=== PATIENT | male | born 1950 | race African-American/Black ===

== ENCOUNTER 2016-06-14 13:55 | Inpatient (IN) ==
--- NOTE | 2016-06-18 15:50 | Internal Med History&Physical ---
Date of Encounter: 06/18/16 Time of Encounter: 15:47 Assessment and Plan (1) History of atrial fibrillation Current visit: No Status: Chronic Currently rate seems controlled (2) History of coronary artery disease Current visit: No Status: Chronic Noted (3) Diabetes mellitus Current visit: No Status: Chronic Qualifiers: Diabetes mellitus type: type 2 Diabetes mellitus complication status: with neurologic complications Diabetes mellitus complication detail: with polyneuropathy Diabetes mellitus intermodal customer service insulin use: without care home use Qualified Code(s): E11.42 - Type 2 diabetes mellitus with diabetic polyneuropathy (4) Acute encephalopathy Current visit: No Status: Acute (5) Healthcare-associated pneumonia Current visit: No Status: Acute Follow cause of encephalopathy and respiratory failure (6) Necrosis of toe Current visit: No Status: Acute Seen by the cemetery laborer. Internal Medicine - H&P: HPI Admitted From: Hospital to Hospital Transfer Plans for Post Hospital Care: Home History of present illness: Mr. Philip is a 65 year old male Past Med Surg Social Fam HX - Past Medical History Medical history: atrial fibrillation, CVA, diabetes, GERD, hypertension Psychiatric history: no psych history - Past Surgical History Surgical History: non-contributory - Social History Smoking Status: Never smoker Smokeless Tobacco Status: No Alcohol use: none Drug use: none - Family History Father Family Member Ethnicity: Non- Living Status: Internal Medicine - H&P: Meds Aspirin Enteric Coated [Aspirin EC] 81 mg PO DAILY 02/02/15 [History] Atorvastatin Calcium [Lipitor] 80 mg PO HS 02/02/15 [History] Buspirone HCl [Buspar] 10 mg PO BID 02/02/15 [History] Carvedilol [Coreg] 25 mg PO BID 02/02/15 [History] Furosemide [Lasix] 40 mg PO BID 02/02/15 [History] Omeprazole [PriLOSEC] 20 mg PO DAILY 02/02/15 [History] TraZODone 50 mg PO HS 02/02/15 [History] Alprazolam [Xanax 0.25 MG Tablet] 0.25 mg PO QID PRN 07/24/15 [History] Docusate [Colace] 100 mg PO DAILY PRN 05/22/16 [History] Escitalopram [Lexapro] 20 mg PO DAILY 05/22/16 [History] Gabapentin [Neurontin] 900 mg PO TID 05/22/16 [History] Lisinopril [Zestril] 40 mg PO BID 05/22/16 [History] Spironolactone [Aldactone] 100 mg PO DAILY 05/22/16 [History] Tizanidine HCl 4 mg PO Q8H PRN 05/22/16 [History] Megestrol Acetate [Megace] 400 mg PO DAILY #30 udc 06/18/16 [Rx] Warfarin [Coumadin] 3 mg PO 1800 #20 tablet 06/18/16 [Rx] Allergies benzethonium chloride [From Lanacane Enloe] Allergy (Intermediate, Verified 11:57) Rash benzocaine [From Lanacane Enloe] Allergy (Intermediate, Verified 03/24/16 11:57) Rash All Systems PM: A 10-system review of systems was performed and is negative for pertinent findings except as documented above in the HPI. - Constitutional Vitals: Temp Pulse Resp BP Pulse Ox 98.2 F 87 18 136/69 97 06/18/16 14:31 06/18/16 14:31 06/18/16 14:31 06/18/16 14:31 06/18/16 14:31 - Head Head exam: Present: atraumatic, normal inspection, normocephalic - Neck Neck exam general surgery: Present: supple, trachea midline. Absent: lymphadenopathy - Respiratory Respiratory exam: Present: CTAB. Absent: accessory muscle use, rales, rhonchi, wheezes - Cardiovascular Cardiovascular exam: Present: RRR, +S1, +S2. Absent: diastolic murmur, gallop, rubs, systolic murmur - GI/Abdominal GI/Abdominal exam: Present: normal bowel sounds, soft, no peritoneal signs. Absent: distended, tenderness Internal Med - H&P Results - Labs Labs: Pending
[2016-06-18] MEDS ORDERED: Warfarin perPT PO PRN (20:32)
[2016-06-18] MEDS: Gabapentin 300 MG CAPSULE PO SCH (20:41)
[2016-06-18] MEDS: Lisinopril 20 MG TABLET PO SCH (20:42)
[2016-06-18] MEDS: Furosemide 40 MG TABLET PO SCH (20:58)
[2016-06-19 05:38] LABS: Basophils % 0.2 %; Eosinophils # 0.3 K/mcL (0.0-0.6); Eosinophils % 2.9 %; Hematocrit 29.8 % (37.5-50.1); Hemoglobin 10.2 g/dL (12.9-16.9); Immature Granulocytes % 0.3 % (0-4); Lymphocytes # 1.2 K/mcL (0.6-4.6); Lymphocytes % 13.9 %; Mean Corpuscular HGB Conc 34.2 g/dL (31.6-35.5); Mean Corpuscular Hemoglobin 29.4 pg (28.0-33.3); Mean Corpuscular Volume 85.9 fL (83.0-100.0); Mean Platelet Volume 10.7 fL (9.4-12.4); Monocytes # 0.9 K/mcL (0.0-1.3); Monocytes % 9.8 %; Neutrophils # 6.5 K/mcL (1.6-8.9); Platelet Count 156 K/mcL (140-400); Red Blood Count 3.47 M/mcL (4.19-5.50); Red Cell Distribution Width 16.1 % (11.5-14.5); Segmented Neutrophils % 72.9 %
[2016-06-19 05:47] LABS: INR 3.9
[2016-06-19 05:50] LABS: BUN/Creatinine Ratio 14 (6-26); Blood Urea Nitrogen 13 mg/dL (8-26); Carbon Dioxide 20 mEq/L (19-29); Chloride 117 mEq/L (98-109); Glucose 106 mg/dL (70-99); Osmolality,Calculated 305 (280-300); Potassium 2.9 mEq/L (3.5-4.5); Sodium 147 mEq/L (136-145); eGFR For African Americans > 60 (> 60); eGFR For Non-African Americans > 60 (> 60)
[2016-06-19 05:51] LABS: Prothrombin Time 43.5 Seconds (9.4-12.1)
[2016-06-19] MEDS ORDERED: *HR* Heparin 5,000 UNIT/ML VIAL SQ SCH (09:00)
[2016-06-19] MEDS: Lisinopril 20 MG TABLET PO SCH ×2 (09:33→22:45)
[2016-06-19] MEDS: Gabapentin 300 MG CAPSULE PO SCH ×3 (09:33→22:45)
[2016-06-19] MEDS: Megestrol Acetate 400 MG/10 ML UDC PO SCH (09:33)
[2016-06-19] MEDS: Aspirin Enteric Coated 81 MG Tablet PO SCH (09:34)
[2016-06-19] MEDS: Furosemide 40 MG TABLET PO SCH ×2 (09:34→19:53)
--- NOTE | 2016-06-19 15:14 | Internal Med Progress Note ---
Date of Encounter: 06/19/16 Time of Encounter: 15:12 - Assessment and plan (1) History of atrial fibrillation Current Visit: No Status: Chronic Assessment and plan: Right now no evidence of uncontrolled heart rate (2) History of coronary artery disease Current Visit: No Status: Chronic (3) Diabetes mellitus Current Visit: No Status: Chronic Qualifiers: Diabetes mellitus type: type 2 Diabetes mellitus complication status: with neurologic complications Diabetes mellitus complication detail: with polyneuropathy Diabetes mellitus bed bug exterminator insulin use: without bed bug exterminator use Qualified Code(s): E11.42 - Type 2 diabetes mellitus with diabetic polyneuropathy (4) Acute encephalopathy Current Visit: No Status: Acute Assessment and plan: Well not sure if this resolved or not. Patient is not completely responsive (5) Healthcare-associated pneumonia Current Visit: No Status: Acute Assessment and plan: We will follow-up chest x-ray (6) Necrosis of toe Current Visit: No Status: Acute - Time Spent With Patient less than 15 minutes - Subjective Interval history: This patient did very poorly today he is barely able to do anything with her therapist. If this continues by Thursday he will be a fci candidate - Constitutional Vitals: Temp Pulse Resp BP Pulse Ox 97.4 F L 91 20 103/70 93 06/19/16 11:19 06/19/16 11:19 06/19/16 11:19 06/19/16 11:19 06/19/16 11:19 - Head Head exam: Present: atraumatic, normal inspection, normocephalic - Neck Neck exam general surgery: Present: supple, trachea midline. Absent: lymphadenopathy - Respiratory Respiratory exam: Present: CTAB. Absent: accessory muscle use, rales, rhonchi, wheezes - Cardiovascular Cardiovascular exam: Present: RRR, +S1, +S2. Absent: diastolic murmur, gallop, rubs, systolic murmur - GI/Abdominal GI/Abdominal exam: Present: normal bowel sounds, soft, no peritoneal signs. Absent: distended, tenderness - Expanded Lower Extremities Exam Foot/Toe exam: Present: deformity (Or the patient has a [facility] left lateral heel eschar.) Neuro vascular tendon exam: Present: abnormal 2-point discrimination Internal Medicine: Result - Labs CBC & Chem 7: 06/19/16 05:05 06/19/16 05:05 Labs: Short CBC 06/19/16 Range/Units 05:05 WBC 8.9 (4.3-11.1) K/mcL Hgb 10.2 L D (12.9-16.9) g/dL Hct 29.8 L (37.5-50.1) % Plt Count 156 (140-400) K/mcL Neutrophils # 6.5 (1.6-8.9) K/mcL BMP 06/19/16 05:05 Sodium 147 H Potassium 2.9 L Chloride 117 H Carbon Dioxide 20 BUN 13 Creatinine 0.94 Glucose 106 H Calcium 8.0 L Potassium was low sodium is a little elevated and I may have to correct this with fluids. - ABG Interpretation ABG results: PT/INR, D-dimer PT 43.5 Seconds (9.4-12.1) H* 06/19/16 05:05 Consult Discharge Plan - Plan Referrals: Yaz Key DO [Primary Care Provider] -
[2016-06-19] MEDS ORDERED: *HR* Warfarin 3 MG TABLET PO SCH ×2 (18:00)
[2016-06-20 05:38] LABS: INR 3.3
[2016-06-20 05:49] LABS: BUN/Creatinine Ratio 13 (6-26); Blood Urea Nitrogen 15 mg/dL (8-26); Calcium 7.9 mg/dL (8.6-10.8); Carbon Dioxide 22 mEq/L (19-29); Chloride 115 mEq/L (98-109); Glucose 113 mg/dL (70-99); Osmolality,Calculated 306 (280-300); Potassium 2.7 mEq/L (3.5-4.5); Sodium 147 mEq/L (136-145); eGFR For African Americans > 60 (> 60); eGFR For Non-African Americans > 60 (> 60)
[2016-06-20 06:04] LABS: Albumin/Globulin Ratio 0.4 (1.1-2.2); Globulin 4.2 g/dL (2.4-3.5)
[2016-06-20 08:43] LABS: Albumin 1.8 g/dL (3.5-5.0)
[2016-06-20] MEDS: Gabapentin 300 MG CAPSULE PO SCH ×3 (09:51→22:39)
[2016-06-20] MEDS: Megestrol Acetate 400 MG/10 ML UDC PO SCH (09:51)
[2016-06-20] MEDS: Lisinopril 20 MG TABLET PO SCH ×2 (09:51→22:40)
[2016-06-20] MEDS: Aspirin Enteric Coated 81 MG Tablet PO SCH (09:52)
[2016-06-20] MEDS: Furosemide 40 MG TABLET PO SCH ×2 (09:53→18:48)
[2016-06-21 05:11] LABS: INR 2.6; Prothrombin Time 28.4 Seconds (9.4-12.1)
[2016-06-21] MEDS: Gabapentin 300 MG CAPSULE PO SCH ×3 (08:53→20:57)
[2016-06-21] MEDS: Aspirin Enteric Coated 81 MG Tablet PO SCH (08:53)
[2016-06-21] MEDS: Lisinopril 20 MG TABLET PO SCH ×2 (08:54→20:56)
[2016-06-21] MEDS: Megestrol Acetate 400 MG/10 ML UDC PO SCH (08:54)
[2016-06-21] MEDS: Furosemide 40 MG TABLET PO SCH ×2 (08:54→16:26)
--- NOTE | 2016-06-21 09:35 | Internal Med Progress Note ---
Date of Encounter: 06/21/16 Time of Encounter: 09:31 - Assessment and plan (1) Acute CVA (cerebrovascular accident) Current Visit: Yes Status: Acute Assessment and plan: Medical conditioning secondary to left-sided flaccid. Potassium is low. Will supplement - Time Spent With Patient less than 15 minutes - Subjective Interval history: Still complains of generalized weakness. No shortness of breath no chest pain. Complains of the same left-sided weakness. Eating sitting up. Feeding himself. - Constitutional Vitals: Temp Pulse Resp BP Pulse Ox 98.5 F 87 18 132/77 95 06/21/16 06:53 06/21/16 06:53 06/21/16 06:53 06/21/16 06:53 06/21/16 06:53 General appearance: Present: cachectic, A&O X 3, pleasant, no acute distress - Respiratory Respiratory exam: Present: CTAB. Absent: accessory muscle use, rales, rhonchi, wheezes - Cardiovascular Cardiovascular exam: Present: RRR, +S1, +S2. Absent: diastolic murmur, gallop, rubs, systolic murmur - GI/Abdominal GI/Abdominal exam: Present: normal bowel sounds, soft, no peritoneal signs. Absent: distended, tenderness Internal Medicine: Result - Labs CBC & Chem 7: 06/19/16 05:05 06/20/16 05:00 - ABG Interpretation ABG results: PT/INR, D-dimer PT 28.4 Seconds (9.4-12.1) H 06/21/16 05:00 Consult Discharge Plan - Plan Referrals: Yaz Key DO [Primary Care Provider] -
[2016-06-21] MEDS ORDERED: *HR* Warfarin 1 MG TABLET PO ONE (18:00)
[2016-06-22 05:01] LABS: INR 2.4; Prothrombin Time 26.9 Seconds (9.4-12.1)
[2016-06-22 05:11] LABS: BUN/Creatinine Ratio 10 (6-26); Blood Urea Nitrogen 10 mg/dL (8-26); Calcium 7.6 mg/dL (8.6-10.8); Carbon Dioxide 22 mEq/L (19-29); Chloride 108 mEq/L (98-109); Glucose 149 mg/dL (70-99); Osmolality,Calculated 290 (280-300); Potassium 3.2 mEq/L (3.5-4.5); Sodium 139 mEq/L (136-145); eGFR For African Americans > 60 (> 60); eGFR For Non-African Americans > 60 (> 60)
[2016-06-22] MEDS: Furosemide 40 MG TABLET PO SCH ×2 (08:37→16:29)
[2016-06-22] MEDS: Gabapentin 300 MG CAPSULE PO SCH ×3 (08:45→21:39)
[2016-06-22] MEDS: Megestrol Acetate 400 MG/10 ML UDC PO SCH (08:45)
[2016-06-22] MEDS: Lisinopril 20 MG TABLET PO SCH ×2 (08:45→21:42)
[2016-06-22] MEDS: Aspirin Enteric Coated 81 MG Tablet PO SCH (08:46)
--- NOTE | 2016-06-22 11:00 | Internal Med Progress Note ---
Date of Encounter: 06/22/16 Time of Encounter: 10:57 - Assessment and plan (1) History of atrial fibrillation Current Visit: No Status: Chronic Assessment and plan: Regular rate seems to be controlled (2) History of coronary artery disease Current Visit: No Status: Chronic Assessment and plan: Noted (3) Diabetes mellitus Current Visit: No Status: Chronic Assessment and plan: Followed blood sugars Qualifiers: Diabetes mellitus type: type 2 Diabetes mellitus complication status: with neurologic complications Diabetes mellitus complication detail: with polyneuropathy Diabetes mellitus termite renewal inspector insulin use: without termite renewal inspector use Qualified Code(s): E11.42 - Type 2 diabetes mellitus with diabetic polyneuropathy (4) Acute encephalopathy Current Visit: No Status: Acute Assessment and plan: I think were possibly back to baseline (5) Healthcare-associated pneumonia Current Visit: No Status: Acute Assessment and plan: Check chest x-ray (6) Necrosis of toe Current Visit: No Status: Acute Assessment and plan: Followed by wound care - Time Spent With Patient less than 15 minutes - Subjective Interval history: I actually think the patient responds better today than previously. He is dressed and not up in the wheelchair - Constitutional Vitals: Temp Pulse Resp BP Pulse Ox 98.0 F 72 18 125/62 96 06/22/16 06:56 06/22/16 06:56 06/22/16 06:56 06/22/16 06:56 06/22/16 06:56 General appearance: Present: cachectic, A&O X 3, pleasant, no acute distress - Head Head exam: Present: atraumatic, normal inspection, normocephalic - Neck Neck exam general surgery: Present: supple, trachea midline. Absent: lymphadenopathy - Respiratory Respiratory exam: Present: CTAB. Absent: accessory muscle use, rales, rhonchi, wheezes - Cardiovascular Cardiovascular exam: Present: RRR, +S1, +S2. Absent: diastolic murmur, gallop, rubs, systolic murmur Internal Medicine: Result - Labs CBC & Chem 7: 06/19/16 05:05 06/22/16 04:45 Labs: BMP 06/22/16 04:45 Sodium 139 D Potassium 3.2 L Chloride 108 Carbon Dioxide 22 BUN 10 Creatinine 1.00 Glucose 149 H Calcium 7.6 L Potassium low will follow this - ABG Interpretation ABG results: PT/INR, D-dimer PT 26.9 Seconds (9.4-12.1) H 06/22/16 04:45 Consult Discharge Plan - Plan Referrals: Yaz Key DO [Primary Care Provider] -
[2016-06-22] MEDS: CefTRIAXone 1,000 MG in D5% in Water (Mini-Bag+) 100 ML IVPB SCH (12:53)
[2016-06-22] MEDS: Azithromycin 500 MG in D5% in Water 250 ML IVPB SCH (13:43)
[2016-06-22] MEDS ORDERED: *HR* Warfarin 1 MG TABLET PO ONE (18:00)
[2016-06-23 06:15] LABS: Basophils # 0.1 K/mcL (0.0-0.2); Basophils % 0.7 %; Eosinophils # 0.3 K/mcL (0.0-0.6); Eosinophils % 3.7 %; Hematocrit 27.2 % (37.5-50.1); Hemoglobin 9.4 g/dL (12.9-16.9); Immature Granulocytes % 0.3 % (0-4); Lymphocytes # 1.5 K/mcL (0.6-4.6); Lymphocytes % 20.5 %; Mean Corpuscular HGB Conc 34.6 g/dL (31.6-35.5); Mean Corpuscular Hemoglobin 29.7 pg (28.0-33.3); Mean Corpuscular Volume 85.8 fL (83.0-100.0); Mean Platelet Volume 11.1 fL (9.4-12.4); Monocytes # 0.9 K/mcL (0.0-1.3); Neutrophils # 4.7 K/mcL (1.6-8.9); Platelet Count 133 K/mcL (140-400); Red Blood Count 3.17 M/mcL (4.19-5.50); Red Cell Distribution Width 15.8 % (11.5-14.5); Segmented Neutrophils % 62.8 %
[2016-06-23 06:18] LABS: BUN/Creatinine Ratio 10 (6-26); Blood Urea Nitrogen 9 mg/dL (8-26); Calcium 7.6 mg/dL (8.6-10.8); Carbon Dioxide 22 mEq/L (19-29); Chloride 110 mEq/L (98-109); Glucose 110 mg/dL (70-99); Osmolality,Calculated 289 (280-300); Potassium 3.4 mEq/L (3.5-4.5); Prothrombin Time 21.7 Seconds (9.4-12.1); Sodium 140 mEq/L (136-145); eGFR For African Americans > 60 (> 60); eGFR For Non-African Americans > 60 (> 60)
[2016-06-23] MEDS: CefTRIAXone 1,000 MG in D5% in Water (Mini-Bag+) 100 ML IVPB SCH (07:57)
[2016-06-23] MEDS: Megestrol Acetate 400 MG/10 ML UDC PO SCH (08:50)
[2016-06-23] MEDS: Gabapentin 300 MG CAPSULE PO SCH ×3 (08:50→19:55)
[2016-06-23] MEDS: Furosemide 40 MG TABLET PO SCH ×2 (08:51→15:59)
[2016-06-23] MEDS: Aspirin Enteric Coated 81 MG Tablet PO SCH (08:51)
[2016-06-23] MEDS: Lisinopril 20 MG TABLET PO SCH ×2 (08:51→19:55)
[2016-06-23] MEDS: Azithromycin 500 MG in D5% in Water 250 ML IVPB SCH (13:25)
--- NOTE | 2016-06-23 14:36 | Internal Med Progress Note ---
Date of Encounter: 06/23/16 Time of Encounter: 14:34 - Assessment and plan (1) History of atrial fibrillation Current Visit: No Status: Chronic Assessment and plan: No evidence of uncontrolled heart rate (2) History of coronary artery disease Current Visit: No Status: Chronic Assessment and plan: Noted (3) Diabetes mellitus Current Visit: No Status: Chronic Assessment and plan: Noted Qualifiers: Diabetes mellitus type: type 2 Diabetes mellitus complication status: with neurologic complications Diabetes mellitus complication detail: with polyneuropathy Diabetes mellitus terminal operator insulin use: without senior living use Qualified Code(s): E11.42 - Type 2 diabetes mellitus with diabetic polyneuropathy (4) Acute encephalopathy Current Visit: No Status: Acute Assessment and plan: History of resolved even if he is not appropriate at all time (5) Healthcare-associated pneumonia Current Visit: No Status: Acute Assessment and plan: As still appears to have infiltrate (6) Necrosis of toe Current Visit: No Status: Acute Assessment and plan: Noted - Time Spent With Patient less than 15 minutes - Subjective Interval history: I actually think the patient responds better today than previously. He is dressed and not up in the wheelchair. Chest x-ray continues to show bilateral opacities even related to actually call pneumonic process. Saw continue the antibiotics for the next 5 days - Constitutional Vitals: Temp Pulse Resp BP Pulse Ox 98.6 F 94 17 138/87 97 06/23/16 07:33 06/23/16 09:18 06/23/16 09:18 06/23/16 09:18 06/23/16 09:18 General appearance: Present: cachectic, A&O X 3, pleasant, no acute distress - Head Head exam: Present: atraumatic, normal inspection, normocephalic - Neck Neck exam general surgery: Present: supple, trachea midline. Absent: lymphadenopathy - Respiratory Respiratory exam: Present: CTAB. Absent: accessory muscle use, rales, rhonchi, wheezes - Cardiovascular Cardiovascular exam: Present: RRR, +S1, +S2. Absent: diastolic murmur, gallop, rubs, systolic murmur Internal Medicine: Result - Labs CBC & Chem 7: 06/23/16 05:10 06/23/16 05:10 Labs: Short CBC 06/23/16 Range/Units 05:10 WBC 7.5 (4.3-11.1) K/mcL Hgb 9.4 L (12.9-16.9) g/dL Hct 27.2 L (37.5-50.1) % Plt Count 133 L (140-400) K/mcL Neutrophils # 4.7 (1.6-8.9) K/mcL BMP 06/23/16 05:10 Sodium 140 Potassium 3.4 L Chloride 110 H Carbon Dioxide 22 BUN 9 Creatinine 0.86 Glucose 110 H Calcium 7.6 L Lab is stable - ABG Interpretation ABG results: PT/INR, D-dimer PT 21.7 Seconds (9.4-12.1) H 06/23/16 05:10 - Impressions Impressions Chest X-Ray 06/23/16 06:00 IMPRESSION: Stable bilateral patchy pulmonary opacities. D/ / Jonathan Guo MD / Jonathan Guo MD Interpreting Provider: Jonathan Guo MD Consult Discharge Plan - Plan Referrals: Yaz Key DO [Primary Care Provider] -
[2016-06-23] MEDS ORDERED: Dextrose Gel 15 GM PO PRN ×2 (17:02)
[2016-06-23] MEDS ORDERED: *HR* Dextrose 50 % in Water (Syg) 50 ML SYRINGE IVP PRN (17:02)
[2016-06-23] MEDS ORDERED: D5% in Water 1,000 ML IVC PRN (17:02)
[2016-06-23] MEDS ORDERED: *HR* Warfarin 1 MG TABLET PO ONE (18:00)
[2016-06-23] MEDS: Insulin LISPRO 300 UNITS/3 ML VIAL SQ SCH (22:22)
[2016-06-24 05:28] LABS: INR 1.8; Prothrombin Time 19.5 Seconds (9.4-12.1)
[2016-06-24] MEDS: Aspirin Enteric Coated 81 MG Tablet PO SCH (08:52)
[2016-06-24] MEDS: Megestrol Acetate 400 MG/10 ML UDC PO SCH (08:52)
[2016-06-24] MEDS: CefTRIAXone 1,000 MG in D5% in Water (Mini-Bag+) 100 ML IVPB SCH (08:52)
[2016-06-24] MEDS: Azithromycin 250 MG TABLET PO SCH (08:53)
[2016-06-24] MEDS: Lisinopril 20 MG TABLET PO SCH ×2 (08:53→21:05)
[2016-06-24] MEDS: Furosemide 40 MG TABLET PO SCH ×2 (08:54→17:26)
[2016-06-24] MEDS: Gabapentin 300 MG CAPSULE PO SCH ×3 (08:54→21:05)
[2016-06-24] MEDS: Insulin LISPRO 300 UNITS/3 ML VIAL SQ SCH ×4 (08:54→21:05)
--- NOTE | 2016-06-24 13:28 | Internal Med Progress Note ---
Date of Encounter: 06/24/16 Time of Encounter: 13:28 - Assessment and plan (1) History of atrial fibrillation Current Visit: No Status: Chronic Assessment and plan: No evidence of uncontrolled heart rate (2) History of coronary artery disease Current Visit: No Status: Chronic Assessment and plan: Noted (3) Diabetes mellitus Current Visit: No Status: Chronic Assessment and plan: Noted should be watched closely. Blood sugars pretty darn good Qualifiers: Diabetes mellitus type: type 2 Diabetes mellitus complication status: with neurologic complications Diabetes mellitus complication detail: with polyneuropathy Diabetes mellitus terminal gauger supervisor insulin use: without skilled nursing use Qualified Code(s): E11.42 - Type 2 diabetes mellitus with diabetic polyneuropathy (4) Acute encephalopathy Current Visit: No Status: Acute Assessment and plan: This seems to have resolved (5) Healthcare-associated pneumonia Current Visit: No Status: Acute (6) Necrosis of toe Current Visit: No Status: Acute Assessment and plan: I think in the next couple days and. Chest CT. Since this has not changed much I Dixon strictly a pneumonic process these 2 opacities - Time Spent With Patient less than 15 minutes - Subjective Interval history: I actually think the patient responds better today than previously. He is dressed and . Patient is is having normal conversations now. up in the wheelchair. Chest x-ray continues to show bilateral opacities even related to actually call pneumonic process. Saw continue the antibiotics for the next 5 days - Constitutional Vitals: Temp Pulse Resp BP Pulse Ox 98.6 F 85 16 113/73 96 06/24/16 06:00 06/24/16 06:00 06/24/16 06:00 06/24/16 06:00 06/24/16 06:00 General appearance: Present: cachectic, A&O X 3, pleasant, no acute distress - Head Head exam: Present: atraumatic, normocephalic - Neck Neck exam general surgery: Present: supple, trachea midline. Absent: lymphadenopathy - Respiratory Respiratory exam: Present: CTAB. Absent: accessory muscle use, rales, rhonchi, wheezes - Cardiovascular Cardiovascular exam: Present: RRR, +S1, +S2. Absent: diastolic murmur, gallop, rubs, systolic murmur Internal Medicine: Result - Labs CBC & Chem 7: 06/23/16 05:10 06/23/16 05:10 Labs: Watch the potassium - ABG Interpretation ABG results: PT/INR, D-dimer PT 19.5 Seconds (9.4-12.1) H 06/24/16 05:10 Consult Discharge Plan - Plan Referrals: Yaz Key DO [Primary Care Provider] -
[2016-06-24] MEDS ORDERED: *HR* Warfarin 1 MG TABLET PO ONE (18:00)
[2016-06-25 05:24] LABS: INR 1.7; Prothrombin Time 18.9 Seconds (9.4-12.1)
[2016-06-25] MEDS: Insulin LISPRO 300 UNITS/3 ML VIAL SQ SCH ×4 (07:29→21:47)
[2016-06-25] MEDS: Megestrol Acetate 400 MG/10 ML UDC PO SCH (07:29)
[2016-06-25] MEDS: Aspirin Enteric Coated 81 MG Tablet PO SCH (07:36)
[2016-06-25] MEDS: Azithromycin 250 MG TABLET PO SCH (07:36)
[2016-06-25] MEDS: Furosemide 40 MG TABLET PO SCH ×2 (07:36→16:41)
[2016-06-25] MEDS: Lisinopril 20 MG TABLET PO SCH ×2 (07:37→21:45)
[2016-06-25] MEDS: Gabapentin 300 MG CAPSULE PO SCH ×3 (07:37→21:46)
[2016-06-25] MEDS: CefTRIAXone 1,000 MG in D5% in Water (Mini-Bag+) 100 ML IVPB SCH (09:50)
[2016-06-25] MEDS: Acetaminophen 325 MG TABLET PO PRN (09:59)
--- NOTE | 2016-06-25 14:29 | Internal Med Progress Note ---
Date of Encounter: 06/25/16 Time of Encounter: 14:00 - Assessment and plan (1) History of atrial fibrillation Current Visit: No Status: Chronic (2) History of coronary artery disease Current Visit: No Status: Chronic (3) Diabetes mellitus Current Visit: No Status: Chronic Qualifiers: Diabetes mellitus type: type 2 Diabetes mellitus complication status: with neurologic complications Diabetes mellitus complication detail: with polyneuropathy Diabetes mellitus exterminator helper insulin use: without exterminator helper use Qualified Code(s): E11.42 - Type 2 diabetes mellitus with diabetic polyneuropathy (4) Acute encephalopathy Current Visit: No Status: Acute (5) Healthcare-associated pneumonia Current Visit: No Status: Acute (6) Necrosis of toe Current Visit: No Status: Acute - Subjective Interval history: I actually think the patient responds better today than previously. He is dressed and . Patient is is having normal conversations now. up in the wheelchair. Chest x-ray continues to show bilateral opacities even related to actually call pneumonic process. Saw continue the antibiotics for the next 5 days - Constitutional Vitals: Temp Pulse Resp BP Pulse Ox 97.8 F 94 18 100/60 96 06/25/16 07:08 06/25/16 07:08 06/25/16 07:08 06/25/16 13:03 06/25/16 07:08 General appearance: Present: cachectic, A&O X 3, pleasant, no acute distress Internal Medicine: Result - Labs CBC & Chem 7: 06/23/16 05:10 06/25/16 05:00 Labs: BMP 06/25/16 05:00 Potassium 3.4 L - ABG Interpretation ABG results: PT/INR, D-dimer PT 18.9 Seconds (9.4-12.1) H 06/25/16 05:00 - Impressions Impressions Chest CT 06/24/16 13:33 IMPRESSION: 1. Improved aeration in the lower lobes. Superimposed opacities some of which demonstrate nodular morphology. While these findings may reflect infectious or inflammatory process, the nodular morphology raises concerns for possible underlying neoplastic process. Recommend follow-up to resolution. 2. Small pericardial effusion, stable since prior study. 3. Cardiomegaly. D/ / 06/24/2016 18:37:35 Tavares Echevarria MD / indira Interpreting Provider: Tavares Echevarria MD Consult Discharge Plan - Plan Referrals: Yaz Key DO [Primary Care Provider] -
[2016-06-25] MEDS ORDERED: *HR* Warfarin 2 MG TABLET PO ONE (18:00)
[2016-06-26 05:16] LABS: INR 1.9; Prothrombin Time 20.7 Seconds (9.4-12.1)
[2016-06-26] MEDS: Insulin LISPRO 300 UNITS/3 ML VIAL SQ SCH ×4 (08:12→21:27)
[2016-06-26] MEDS: Gabapentin 300 MG CAPSULE PO SCH ×3 (09:09→21:28)
[2016-06-26] MEDS: Azithromycin 250 MG TABLET PO SCH (09:10)
[2016-06-26] MEDS: Aspirin Enteric Coated 81 MG Tablet PO SCH (09:10)
[2016-06-26] MEDS: Furosemide 40 MG TABLET PO SCH ×2 (09:10→17:49)
[2016-06-26] MEDS: Lisinopril 20 MG TABLET PO SCH ×2 (09:10→21:28)
[2016-06-26] MEDS: Megestrol Acetate 400 MG/10 ML UDC PO SCH (09:11)
[2016-06-26] MEDS: CefTRIAXone 1,000 MG in D5% in Water (Mini-Bag+) 100 ML IVPB SCH (09:11)
--- NOTE | 2016-06-26 10:41 | Internal Med Progress Note ---
Date of Encounter: 06/26/16 Time of Encounter: 10:39 - Assessment and plan (1) History of atrial fibrillation Current Visit: No Status: Chronic Assessment and plan: No evidence of uncontrolled heart rate at this time (2) History of coronary artery disease Current Visit: No Status: Chronic Assessment and plan: Noted (3) Diabetes mellitus Current Visit: No Status: Chronic Assessment and plan: Following blood sugars. They are labile. He is getting sliding scale coverage as well as basic basal meds Qualifiers: Diabetes mellitus type: type 2 Diabetes mellitus complication status: with neurologic complications Diabetes mellitus complication detail: with polyneuropathy Diabetes mellitus penitentiary insulin use: without terminal worker use Qualified Code(s): E11.42 - Type 2 diabetes mellitus with diabetic polyneuropathy (4) Acute encephalopathy Current Visit: No Status: Acute Assessment and plan: I think this resolved (5) Healthcare-associated pneumonia Current Visit: No Status: Acute Assessment and plan: Following chest x-rays (6) Necrosis of toe Current Visit: No Status: Acute Assessment and plan: Wound cares follow - Time Spent With Patient less than 15 minutes - Subjective Interval history: Patient overall is improved already. He states when he has a BM he does feel like he empties his rectum. The stool was soft with little Reglan increase peristalsis. - Constitutional Vitals: Temp Pulse Resp BP Pulse Ox 97.6 F 119 16 139/73 95 06/26/16 07:00 06/26/16 07:00 06/26/16 07:00 06/26/16 07:00 06/26/16 07:00 General appearance: Present: cachectic, A&O X 3, pleasant, no acute distress - Head Head exam: Present: atraumatic, normal inspection, normocephalic - Neck Neck exam general surgery: Present: supple, trachea midline. Absent: lymphadenopathy - Respiratory Respiratory exam: Present: CTAB. Absent: accessory muscle use, rales, rhonchi, wheezes - Cardiovascular Cardiovascular exam: Present: RRR, +S1, +S2. Absent: diastolic murmur, gallop, rubs, systolic murmur Internal Medicine: Result - Labs CBC & Chem 7: 06/23/16 05:10 06/26/16 05:02 Labs: BMP 06/26/16 05:02 Potassium 3.6 Lab is okay potassium was normal - ABG Interpretation ABG results: PT/INR, D-dimer PT 20.7 Seconds (9.4-12.1) H 06/26/16 05:02 Consult Discharge Plan - Plan Referrals: Yaz Key DO [Primary Care Provider] -
[2016-06-26] MEDS ORDERED: *HR* Warfarin 1 MG TABLET PO ONE (18:00)
[2016-06-27 05:48] LABS: Prothrombin Time 21.7 Seconds (9.4-12.1)
[2016-06-27] MEDS: Lisinopril 20 MG TABLET PO SCH ×2 (08:47→21:19)
[2016-06-27] MEDS: Aspirin Enteric Coated 81 MG Tablet PO SCH (08:48)
[2016-06-27] MEDS: Gabapentin 300 MG CAPSULE PO SCH ×3 (08:48→21:18)
[2016-06-27] MEDS: Azithromycin 250 MG TABLET PO SCH (08:48)
[2016-06-27] MEDS: Furosemide 40 MG TABLET PO SCH ×2 (08:48→16:15)
[2016-06-27] MEDS: CefTRIAXone 1,000 MG in D5% in Water (Mini-Bag+) 100 ML IVPB SCH (08:48)
[2016-06-27] MEDS: Insulin LISPRO 300 UNITS/3 ML VIAL SQ SCH ×4 (09:33→21:17)
[2016-06-27] MEDS: Megestrol Acetate 400 MG/10 ML UDC PO SCH (09:33)
[2016-06-27] MEDS: Acetaminophen 325 MG TABLET PO PRN (11:47)
--- NOTE | 2016-06-27 14:14 | Internal Med Progress Note ---
Date of Encounter: 06/27/16 Time of Encounter: 14:12 - Assessment and plan (1) History of atrial fibrillation Current Visit: No Status: Chronic Assessment and plan: No evidence of uncontrolled heart (2) History of coronary artery disease Current Visit: No Status: Chronic Assessment and plan: Noted (3) Diabetes mellitus Current Visit: No Status: Chronic Assessment and plan: Ledgers fairly good. Qualifiers: Diabetes mellitus type: type 2 Diabetes mellitus complication status: with neurologic complications Diabetes mellitus complication detail: with polyneuropathy Diabetes mellitus detention insulin use: without detention use Qualified Code(s): E11.42 - Type 2 diabetes mellitus with diabetic polyneuropathy (4) Acute encephalopathy Current Visit: No Status: Acute Assessment and plan: Results (5) Healthcare-associated pneumonia Current Visit: No Status: Acute (6) Necrosis of toe Current Visit: No Status: Acute Assessment and plan: Patient is had some significant changes in lower extremities. Large eschar lateral aspect of left - Time Spent With Patient less than 15 minutes - Subjective Interval history: Patient had a good BM states he feels better. He is cooperating with therapists. - Constitutional Vitals: Temp Pulse Resp BP Pulse Ox 99.3 F 92 16 129/71 95 06/27/16 07:00 06/27/16 07:00 06/27/16 07:00 06/27/16 07:00 06/27/16 07:00 General appearance: Present: cachectic, A&O X 3, pleasant, no acute distress - Head Head exam: Present: atraumatic, normal inspection, normocephalic - Neck Neck exam general surgery: Present: supple, trachea midline. Absent: lymphadenopathy - Respiratory Respiratory exam: Present: CTAB. Absent: accessory muscle use, rales, rhonchi, wheezes - Cardiovascular Cardiovascular exam: Present: RRR, +S1, +S2. Absent: diastolic murmur, gallop, rubs, systolic murmur Internal Medicine: Result - Labs CBC & Chem 7: 06/23/16 05:10 06/26/16 05:02 Labs: Labs stable - ABG Interpretation ABG results: PT/INR, D-dimer PT 21.7 Seconds (9.4-12.1) H 06/27/16 05:00 - Impressions Impressions Chest X-Ray 06/27/16 10:43 IMPRESSION: Persistent bilateral lung infiltrates with small left pleural effusion and left basilar atelectasis. D/ / 06/27/2016 07:48:25 Pepito Johnson MD / tiffani Interpreting Provider: Pepito Johnson MD Consult Discharge Plan - Plan Referrals: Yaz Key DO [Primary Care Provider] -
[2016-06-27] MEDS ORDERED: *HR* Warfarin 1 MG TABLET PO ONE (18:00)
[2016-06-28 05:47] LABS: INR 1.9; Prothrombin Time 21.4 Seconds (9.4-12.1)
[2016-06-28] MEDS: Aspirin Enteric Coated 81 MG Tablet PO SCH (09:42)
[2016-06-28] MEDS: Gabapentin 300 MG CAPSULE PO SCH ×3 (09:42→22:04)
[2016-06-28] MEDS: Furosemide 40 MG TABLET PO SCH ×2 (09:42→17:36)
[2016-06-28] MEDS: Lisinopril 20 MG TABLET PO SCH ×2 (09:43→22:05)
[2016-06-28] MEDS: Azithromycin 250 MG TABLET PO SCH (09:43)
[2016-06-28] MEDS: CefTRIAXone 1,000 MG in D5% in Water (Mini-Bag+) 100 ML IVPB SCH (09:43)
[2016-06-28] MEDS: Megestrol Acetate 400 MG/10 ML UDC PO SCH (09:46)
[2016-06-28] MEDS: Insulin LISPRO 300 UNITS/3 ML VIAL SQ SCH ×4 (09:47→22:05)
--- NOTE | 2016-06-28 12:07 | Internal Med Progress Note ---
Date of Encounter: 06/28/16 Time of Encounter: 12:06 - Assessment and plan (1) Acute CVA (cerebrovascular accident) Current Visit: Yes Status: Acute Assessment and plan: Medical conditioning secondary to left-sided flaccid. PT OT working on improving strength, endurance and improving ADL. - Time Spent With Patient less than 15 minutes - Subjective Interval history: States that cough is better. No fever. No shortness of breath. No chest pain. Still complains of generalized weakness. No shortness of breath no chest pain. Complains of the same left-sided weakness. Eating sitting up. Feeding himself. - Constitutional Vitals: Temp Pulse Resp BP Pulse Ox 97.4 F L 84 20 108/64 94 06/28/16 07:00 06/28/16 07:00 06/28/16 07:00 06/28/16 07:00 06/28/16 07:00 General appearance: Present: cachectic, A&O X 3, pleasant, no acute distress - Respiratory Respiratory exam: Present: CTAB. Absent: accessory muscle use, rales, rhonchi, wheezes - Cardiovascular Cardiovascular exam: Present: RRR, +S1, +S2. Absent: diastolic murmur, gallop, rubs, systolic murmur - GI/Abdominal GI/Abdominal exam: Present: normal bowel sounds, soft, no peritoneal signs. Absent: distended, tenderness - Extremities Exam Extremities exam: Present: warm, radial pulses palpable and symetrical. Absent : calf tenderness, cyanotic, pedal edema Internal Medicine: Result - Labs CBC & Chem 7: 06/23/16 05:10 06/26/16 05:02 - ABG Interpretation ABG results: PT/INR, D-dimer PT 21.4 Seconds (9.4-12.1) H 06/28/16 05:10 Consult Discharge Plan - Plan Referrals: Yaz Key DO [Primary Care Provider] -
--- NOTE | 2016-06-28 12:11 | Internal Med Progress Note ---
Date of Encounter: 06/29/16 Time of Encounter: 11:01 - Assessment and plan (1) Acute CVA (cerebrovascular accident) Current Visit: Yes Status: Acute Assessment and plan: Medical conditioning secondary to left-sided flaccid. PT OT working on improving strength, endurance and improving ADL. - Time Spent With Patient less than 15 minutes - Subjective Interval history: No fever. No shortness of breath. No chest pain. Still complains of generalized weakness. No shortness of breath no chest pain. Complains of the same left-sided weakness. Eating sitting up. Feeding himself. - Constitutional Vitals: Temp Pulse Resp BP Pulse Ox 97.4 F L 84 20 108/64 94 06/28/16 07:00 06/28/16 07:00 06/28/16 07:00 06/28/16 07:00 06/28/16 07:00 General appearance: Present: cachectic, A&O X 3, pleasant, no acute distress - Respiratory Respiratory exam: Present: CTAB. Absent: accessory muscle use, rales, rhonchi, wheezes - Cardiovascular Cardiovascular exam: Present: RRR, +S1, +S2. Absent: diastolic murmur, gallop, rubs, systolic murmur - GI/Abdominal GI/Abdominal exam: Present: normal bowel sounds, soft, no peritoneal signs. Absent: distended, tenderness - Extremities Exam Extremities exam: Present: warm, radial pulses palpable and symetrical. Absent : calf tenderness, cyanotic, pedal edema - Neurological Exam Neurological exam: Present: facial droop (Left-sided is flaccid. Facial droop noted.) Internal Medicine: Result - Labs CBC & Chem 7: 06/23/16 05:10 06/26/16 05:02 - ABG Interpretation ABG results: PT/INR, D-dimer PT 21.4 Seconds (9.4-12.1) H 06/28/16 05:10 Consult Discharge Plan - Plan Referrals: Yaz Key DO [Primary Care Provider] -
[2016-06-28] MEDS: Acetaminophen 325 MG TABLET PO PRN (13:41)
[2016-06-28] MEDS ORDERED: *HR* Warfarin 2 MG TABLET PO ONE (18:00)
[2016-06-29] MEDS: Acetaminophen 325 MG TABLET PO PRN (01:20)
[2016-06-29 05:07] LABS: INR 1.8; Prothrombin Time 19.8 Seconds (9.4-12.1)
[2016-06-29] MEDS: Insulin LISPRO 300 UNITS/3 ML VIAL SQ SCH ×4 (08:48→20:48)
[2016-06-29] MEDS: Furosemide 40 MG TABLET PO SCH ×2 (09:02→20:45)
[2016-06-29] MEDS: Megestrol Acetate 400 MG/10 ML UDC PO SCH (09:02)
[2016-06-29] MEDS: Gabapentin 300 MG CAPSULE PO SCH ×3 (09:02→20:44)
[2016-06-29] MEDS: Lisinopril 20 MG TABLET PO SCH ×2 (09:02→21:14)
[2016-06-29] MEDS: Azithromycin 250 MG TABLET PO SCH (09:03)
[2016-06-29] MEDS: Aspirin Enteric Coated 81 MG Tablet PO SCH (09:03)
[2016-06-29] MEDS: CefTRIAXone 1,000 MG in D5% in Water (Mini-Bag+) 100 ML IVPB SCH (09:04)
[2016-06-29] MEDS ORDERED: *HR* Warfarin 2 MG TABLET PO ONE (18:00)
[2016-06-30 05:49] LABS: Basophils % 0.6 %; Eosinophils # 0.2 K/mcL (0.0-0.6); Eosinophils % 3.6 %; Hematocrit 25.8 % (37.5-50.1); Hemoglobin 8.9 g/dL (12.9-16.9); Immature Granulocytes % 0.2 % (0-4); Lymphocytes # 1.4 K/mcL (0.6-4.6); Lymphocytes % 25.5 %; Mean Corpuscular HGB Conc 34.5 g/dL (31.6-35.5); Mean Corpuscular Hemoglobin 30.2 pg (28.0-33.3); Mean Corpuscular Volume 87.5 fL (83.0-100.0); Mean Platelet Volume 10.3 fL (9.4-12.4); Monocytes # 0.7 K/mcL (0.0-1.3); Monocytes % 12.2 %; Neutrophils # 3.1 K/mcL (1.6-8.9); Platelet Count 204 K/mcL (140-400); Red Blood Count 2.95 M/mcL (4.19-5.50); Red Cell Distribution Width 16.1 % (11.5-14.5); Segmented Neutrophils % 57.9 %
[2016-06-30 06:04] LABS: INR 1.8; Prothrombin Time 20.3 Seconds (9.4-12.1)
[2016-06-30 06:06] LABS: BUN/Creatinine Ratio 14 (6-26); Blood Urea Nitrogen 12 mg/dL (8-26); Calcium 8.2 mg/dL (8.6-10.8); Carbon Dioxide 23 mEq/L (19-29); Chloride 107 mEq/L (98-109); Glucose 166 mg/dL (70-99); Osmolality,Calculated 292 (280-300); Sodium 139 mEq/L (136-145); eGFR For African Americans > 60 (> 60); eGFR For Non-African Americans > 60 (> 60)
[2016-06-30] MEDS: Insulin LISPRO 300 UNITS/3 ML VIAL SQ SCH ×4 (08:08→20:32)
[2016-06-30] MEDS: Lisinopril 20 MG TABLET PO SCH ×2 (08:43→19:49)
[2016-06-30] MEDS: Aspirin Enteric Coated 81 MG Tablet PO SCH (08:43)
[2016-06-30] MEDS: Megestrol Acetate 400 MG/10 ML UDC PO SCH (08:43)
[2016-06-30] MEDS: Furosemide 40 MG TABLET PO SCH ×2 (08:43→17:17)
[2016-06-30] MEDS: CefTRIAXone 1,000 MG in D5% in Water (Mini-Bag+) 100 ML IVPB SCH (08:44)
[2016-06-30] MEDS: Acetaminophen 325 MG TABLET PO PRN (08:47)
[2016-06-30] MEDS: Gabapentin 300 MG CAPSULE PO SCH ×3 (11:10→19:48)
--- NOTE | 2016-06-30 14:06 | Internal Med Progress Note ---
Date of Encounter: 06/30/16 Time of Encounter: 14:13 - Assessment and plan (1) History of atrial fibrillation Current Visit: No Status: Chronic Assessment and plan: No evidence of rheumatoid heart (2) History of coronary artery disease Current Visit: No Status: Chronic Assessment and plan: Noted (3) Diabetes mellitus Current Visit: No Status: Chronic Assessment and plan: Following blood sugars Qualifiers: Diabetes mellitus type: type 2 Diabetes mellitus complication status: with neurologic complications Diabetes mellitus complication detail: with polyneuropathy Diabetes mellitus fci insulin use: without fci use Qualified Code(s): E11.42 - Type 2 diabetes mellitus with diabetic polyneuropathy (4) Acute encephalopathy Current Visit: No Status: Acute Assessment and plan: I reviewed this result (5) Healthcare-associated pneumonia Current Visit: No Status: Acute Assessment and plan: Following chest x-ray going to probably recheck in (6) Necrosis of toe Current Visit: No Status: Acute Assessment and plan: Following a bowel movement - Time Spent With Patient less than 15 minutes - Subjective Interval history: Patient had a good BM states he feels better. He is cooperating with therapists. Patient some progressing slowly. - Constitutional Vitals: Temp Pulse Resp BP Pulse Ox 98.6 F 84 18 126/72 94 06/30/16 07:02 06/30/16 07:02 06/30/16 07:02 06/30/16 07:02 06/30/16 07:02 General appearance: Present: cachectic, A&O X 3, pleasant, no acute distress - Head Head exam: Present: atraumatic, normal inspection, normocephalic - Neck Neck exam general surgery: Present: supple, trachea midline. Absent: lymphadenopathy - Respiratory Respiratory exam: Present: CTAB. Absent: accessory muscle use, rales, rhonchi, wheezes - Cardiovascular Cardiovascular exam: Present: RRR, +S1, +S2. Absent: diastolic murmur, gallop, rubs, systolic murmur Internal Medicine: Result - Labs CBC & Chem 7: 06/30/16 04:50 06/30/16 04:50 Labs: Short CBC 06/30/16 Range/Units 04:50 WBC 5.3 (4.3-11.1) K/mcL Hgb 8.9 L (12.9-16.9) g/dL Hct 25.8 L (37.5-50.1) % Plt Count 204 D (140-400) K/mcL Neutrophils # 3.1 (1.6-8.9) K/mcL BMP 06/30/16 04:50 Sodium 139 Potassium 4.0 Chloride 107 Carbon Dioxide 23 BUN 12 Creatinine 0.83 Glucose 166 H Calcium 8.2 L Lab is stable - ABG Interpretation ABG results: PT/INR, D-dimer PT 20.3 Seconds (9.4-12.1) H 06/30/16 04:50 Consult Discharge Plan - Plan Referrals: Yza Key DO [Primary Care Provider] -
[2016-06-30] MEDS ORDERED: *HR* Warfarin 2 MG TABLET PO ONE (18:00)
[2016-07-01 05:53] LABS: INR 2.2; Prothrombin Time 24.4 Seconds (9.4-12.1)
[2016-07-01] MEDS: Insulin LISPRO 300 UNITS/3 ML VIAL SQ SCH ×2 (07:41→11:58)
[2016-07-01] MEDS: Gabapentin 300 MG CAPSULE PO SCH ×2 (08:34→14:15)
[2016-07-01] MEDS: Lisinopril 20 MG TABLET PO SCH (08:34)
[2016-07-01] MEDS: Megestrol Acetate 400 MG/10 ML UDC PO SCH (08:35)
[2016-07-01] MEDS: Aspirin Enteric Coated 81 MG Tablet PO SCH (08:35)
[2016-07-01] MEDS: Furosemide 40 MG TABLET PO SCH (08:35)
[2016-07-01] MEDS: CefTRIAXone 1,000 MG in D5% in Water (Mini-Bag+) 100 ML IVPB SCH (08:36)
[2016-07-01 08:42] VITALS: BP 113/72
--- NOTE | 2016-07-01 11:58 | Physician Discharge Referral ---
ExtendedCare Referral Info Transfer To: ON LICENSE OF [facility]. Patient needs considerable skilled care Provider in Charge after Transfer: PCP Institutional Level of Care: Skilled - Diagnosis (1) History of atrial fibrillation Priority: Secondary Status: Chronic (2) History of coronary artery disease Priority: Secondary Status: Chronic (3) Diabetes mellitus Priority: Secondary Status: Chronic (4) Acute encephalopathy Priority: Secondary Status: Acute (5) Healthcare-associated pneumonia Priority: Secondary Status: Acute (6) Necrosis of toe Status: Acute Prognosis: Fair Aware of Diagnosis: Patient Aware of Prognosis: Patient - Transfer Medications Home Medications: Aspirin Enteric Coated [Aspirin EC] 81 mg PO DAILY 02/02/15 [History] Atorvastatin Calcium [Lipitor] 80 mg PO HS 02/02/15 [History] Buspirone HCl [Buspar] 10 mg PO BID 02/02/15 [History] Carvedilol [Coreg] 25 mg PO BID 02/02/15 [History] Furosemide [Lasix] 40 mg PO BID 02/02/15 [History] Omeprazole [PriLOSEC] 20 mg PO DAILY 02/02/15 [History] TraZODone 50 mg PO HS 02/02/15 [History] Alprazolam [Xanax 0.25 MG Tablet] 0.25 mg PO QID PRN 07/24/15 [History] Docusate [Colace] 100 mg PO DAILY PRN 05/22/16 [History] Escitalopram [Lexapro] 20 mg PO DAILY 05/22/16 [History] Gabapentin [Neurontin] 900 mg PO TID 05/22/16 [History] Lisinopril [Zestril] 40 mg PO BID 05/22/16 [History] Spironolactone [Aldactone] 100 mg PO DAILY 05/22/16 [History] Tizanidine HCl 4 mg PO Q8H PRN 05/22/16 [History] Megestrol Acetate [Megace] 400 mg PO DAILY #30 udc 06/18/16 [Rx] Warfarin [Coumadin] 3 mg PO 1800 #20 tablet 06/18/16 [Rx] Allergies/Adverse Reactions: Allergies benzethonium chloride [From Lanacane [place]] Allergy (Intermediate, Verified 11:57) Rash benzocaine [From Lanacane [place]] Allergy (Intermediate, Verified 03/24/16 11:57) Rash - Respiratory Orders Smoking Cessation: Smoking cessation has been advised. For more information, call the [place] Tobacco Quit Line at 2-226-FBBJ-NOW. CERTIFICATION: I certify that the transfer of the above named patient to an Extended Care Facility is necessary for the continuing treatment of the diagnosis listed. The above information is true and accurate reflection of patient's current condition. Confidential - Redisclosure prohibited without a patient's written consent.
--- NOTE | 2016-07-01 11:59 | Discharge Summary ---
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 Qualified Code(s): E11.42 - Type 2 diabetes mellitus with diabetic polyneuropathy (4) Acute encephalopathy Priority: Secondary Status: Acute (5) Healthcare-associated pneumonia Priority: Secondary Status: Acute (6) Necrosis of toe Priority: Secondary Status: Acute (7) Acute CVA (cerebrovascular accident) Priority: Primary Status: Acute - Discharge Medications Home Medications: Aspirin Enteric Coated [Aspirin EC] 81 mg PO DAILY 02/02/15 [History] Atorvastatin Calcium [Lipitor] 80 mg PO HS 02/02/15 [History] Buspirone HCl [Buspar] 10 mg PO BID 02/02/15 [History] Carvedilol [Coreg] 25 mg PO BID 02/02/15 [History] Furosemide [Lasix] 40 mg PO BID 02/02/15 [History] Omeprazole [PriLOSEC] 20 mg PO DAILY 02/02/15 [History] TraZODone 50 mg PO HS 02/02/15 [History] Alprazolam [Xanax 0.25 MG Tablet] 0.25 mg PO QID PRN 07/24/15 [History] Docusate [Colace] 100 mg PO DAILY PRN 05/22/16 [History] Escitalopram [Lexapro] 20 mg PO DAILY 05/22/16 [History] Gabapentin [Neurontin] 900 mg PO TID 05/22/16 [History] Lisinopril [Zestril] 40 mg PO BID 05/22/16 [History] Spironolactone [Aldactone] 100 mg PO DAILY 05/22/16 [History] Tizanidine HCl 4 mg PO Q8H PRN 05/22/16 [History] Megestrol Acetate [Megace] 400 mg PO DAILY #30 udc 06/18/16 [Rx] Warfarin [Coumadin] 3 mg PO 1800 #20 tablet 06/18/16 [Rx] Allergies/Adverse Reactions: Allergies benzethonium chloride [From Lanacane [place]] Allergy (Intermediate, Verified 11:57) Rash benzocaine [From Lanacane [place]] Allergy (Intermediate, Verified 03/24/16 11:57) Rash Date of admission: 06/18/16 14:06 Primary care physician: Yaz Key DO Consults: 06/18/16 18:05 Consult to Occupational Therapy [CONS] Routine Comment: Evaluate, develop and implement POC Consult to Physical Medicine/Rehab [CONS] Routine Reason for Consult: s/p hypoxia Call Completed: Yes Consult to Physical Therapy [CONS] Routine Comment: Evaluate, develop and implement POC Consult to Recreational Therapy [CONS] Routine Comment: Evaluate, develop and implement POC Consult to Insurance Healthcare Representative [CONS] Routine Reason for SW Consult: d/c planning s/p hypoxia, ams Consult to Speech Therapy [CONS] Routine Comment: Evaluate, develop and implement POC Reason for Consult: previous cva Call Completed: Yes 06/18/16 18:14 Consult to Wound Care [CONS] Routine Reason for Consult: multiple wounds. see wound record Call Completed: Yes Discharging clinician: Roman Leone Anticipated date of discharge: 07/01/16 - Patient Status Disposition: Transfer SNF Condition: Fair Functional capacity at discharge: wheelchair bound Overall status at discharge: patient is not back to baseline - Discharge Instructions Follow Up With: Yaz Key DO [Primary Care Provider] - - Diet and Activity Activity: as per physical therapy Diet: diabetic diet Interval History: Was brought here after being admitted to the hospital for severe deconditioning pneumonia encephalopathy etc. He is much improved he is alert and oriented and shows and [facility] care Hospital course: Mr. Philip is a 65 year old male - Time Spent with Patient Total time spent providing and/or coordinating discharge services: Less than 30 minutes - Constitutional Vitals: Temp Pulse Resp BP Pulse Ox 98.2 F 80 18 113/72 96 07/01/16 07:00 07/01/16 07:00 07/01/16 07:00 07/01/16 08:42 07/01/16 07:00 General appearance: Present: cachectic, A&O X 3, pleasant, no acute distress - Head Head exam: Present: atraumatic, normal inspection, normocephalic - Neck Neck exam general surgery: Present: supple, trachea midline. Absent: lymphadenopathy - Respiratory Respiratory exam: Present: CTAB. Absent: accessory muscle use, rales, rhonchi, wheezes - Cardiovascular Cardiovascular exam: Present: RRR, +S1, +S2. Absent: diastolic murmur, gallop, rubs, systolic murmur
[2016-07-01] MEDS ORDERED: *HR* Warfarin 2 MG TABLET PO ONE (18:00)
== END 2016-07-01 16:07 | DRG 945 ==
LOC: INPGRE 06-18 14:06
PROVIDERS: ADMIT Internal Medicine; ATTEND Internal Medicine

== ENCOUNTER 2020-09-29 03:54 | Inpatient (IN) ==
[2020-09-29 04:46] LABS: Basophils % 0.3 %; Eosinophils # 0.2 K/mcL (0.0-0.6); Eosinophils % 1.4 %; Hematocrit 28.6 % (37.5-50.1); Hemoglobin 9.3 g/dL (12.9-16.9); Immature Granulocytes % 0.4 % (0-4); Lymphocytes # 0.8 K/mcL (0.6-4.6); Lymphocytes % 7.1 %; Mean Corpuscular HGB Conc 32.5 g/dL (31.6-35.5); Mean Corpuscular Hemoglobin 30.7 pg (28.0-33.3); Mean Corpuscular Volume 94.4 fL (83.0-100.0); Mean Platelet Volume 9.6 fL (9.4-12.4); Monocytes # 1.1 K/mcL (0.0-1.3); Platelet Count 141 K/mcL (140-400); Red Blood Count 3.03 M/mcL (4.19-5.50); Red Cell Distribution Width 13.3 % (11.5-14.5); Segmented Neutrophils % 80.8 %; White Blood Count 11.2 K/mcL (4.3-11.1)
[2020-09-29 04:47] LABS: Neutrophils # 9.1 K/mcL (1.6-8.9)
[2020-09-29 05:04] LABS: Potassium 4.9 mEq/L (3.5-5.1)
[2020-09-29 05:05] LABS: Troponin I 0.05 ng/mL (< 0.04)
[2020-09-29 05:44] LABS: Bilirubin,Urine Negative (Negative); Blood,Urine Trace-intact (Negative); Clarity,Urine Clear (Clear); Color,Urine Yellow (Yellow); Glucose,Urine (UA) Normal (Normal); Ketones,Urine Negative (Negative); Leukocyte Esterase,Urine Negative (Negative); Nitrite,Urine Negative (Negative); Protein,Urine 30 mg/dL (Neg-Trace); Specific Gravity,Urine 1.015 (1.010-1.025); Urobilinogen,Urine Normal (Normal)
[2020-09-29 05:47] LABS: Bacteria,Urine None Seen per hpf (None-Few); Squamous Epithelial Cell,Urine Few per hpf (None-Few); WBC,Urine 0-3 per hpf (0-3)
[2020-09-29] MEDS ORDERED: cefTRIAXone 1,000 MG in 0.9 % Sodium Chloride Mini Bag 100 ML IVPB ONE (06:02)
[2020-09-29] MEDS ORDERED: Azithromycin 500 MG in 0.9 % Sodium Chloride 250 ML IVPB ONE (06:02)
[2020-09-29] MEDS ORDERED: 0.9 % Sodium Chloride 500 ML IVC ONE (06:23)
[2020-09-29] MEDS ORDERED: Dextrose Gel 15 GM/37.5 ML TUBE PO PRN ×6 (09:51→10:48)
[2020-09-29] MEDS ORDERED: *HR* Dextrose 50 % in Water (Vial) 50 ML VIAL IVP PRN ×2 (09:51→10:48)
[2020-09-29] MEDS ORDERED: D5% in Water 1,000 ML IVC PRN ×2 (09:51→10:48)
[2020-09-29] MEDS ORDERED: Ondansetron 4 MG/2 ML VIAL IVP PRN (10:48)
[2020-09-29] MEDS ORDERED: 0.9 % Sodium Chloride 1,000 ML IVC SCH (10:48)
[2020-09-29] MEDS ORDERED: GuaiFENesin Liq 200 MG/10 ML UDC PO PRN (10:48)
[2020-09-29] MEDS ORDERED: Insulin LISPRO 300 UNITS/3 ML VIAL SUBQ SCH ×3 (10:48→21:00)
[2020-09-29] MEDS ORDERED: Ondansetron ODT 4 MG TAB.RAPDIS SL PRN (10:48)
[2020-09-29] MEDS ORDERED: Naloxone 0.4 MG/ML INJ IVP PRN (10:48)
[2020-09-29] MEDS: Furosemide 20 MG TABLET PO SCH ×2 (12:18→20:49)
[2020-09-29] MEDS: Apixaban 5 MG TABLET PO SCH ×2 (12:18→20:49)
[2020-09-29] MEDS: Sennosides/Docusate Sodium TABLET PO SCH ×2 (12:18→20:49)
[2020-09-29] MEDS: Acetaminophen 325 MG TABLET PO PRN (12:18)
[2020-09-29] MEDS: Saline Nasal Spray 44 ML BOTTLE NS SCH ×2 (12:18→20:50)
[2020-09-29] MEDS: Multivit/Ca/Min/Fe/FA 1 TAB TABLET PO SCH (12:18)
[2020-09-29] MEDS: carvediloL 25 MG TABLET PO SCH ×2 (12:18→18:44)
[2020-09-29] MEDS: Loratadine 10 MG TABLET PO SCH (12:18)
[2020-09-29] MEDS: Insulin LISPRO 300 UNITS/3 ML VIAL SUBQ SCH ×2 (12:23→17:06)
[2020-09-29 18:26] LABS: Estimated Average Glucose 146 mg/dl; Hemoglobin A1C 6.7 %
[2020-09-29 19:36] LABS: Hematocrit 29.9 % (37.5-50.1); Hemoglobin 9.5 g/dL (12.9-16.9)
[2020-09-29] MEDS: Gabapentin 100 MG CAPSULE PO SCH (20:49)
[2020-09-29] MEDS: Mirtazapine 15 MG TABLET PO SCH (20:49)
[2020-09-29] MEDS ORDERED: Insulin DETEMIR 100 UNIT/ML X5UNITS SUBQ SCH ×2 (21:00)
[2020-09-30] MEDS: Insulin LISPRO 300 UNITS/3 ML VIAL SUBQ SCH ×5 (00:24→20:23)
[2020-09-30] MEDS: Acetaminophen 325 MG TABLET PO PRN ×2 (00:37→20:21)
[2020-09-30 05:01] LABS: Basophils % 0.3 %; Eosinophils # 0.1 K/mcL (0.0-0.6); Eosinophils % 0.9 %; Hematocrit 30.3 % (37.5-50.1); Hemoglobin 9.5 g/dL (12.9-16.9); Immature Granulocytes % 0.4 % (0-4); Lymphocytes # 1.3 K/mcL (0.6-4.6); Lymphocytes % 10.9 %; Mean Corpuscular HGB Conc 31.4 g/dL (31.6-35.5); Mean Corpuscular Hemoglobin 30.3 pg (28.0-33.3); Mean Corpuscular Volume 96.5 fL (83.0-100.0); Mean Platelet Volume 10.6 fL (9.4-12.4); Monocytes # 1.4 K/mcL (0.0-1.3); Monocytes % 11.8 %; Neutrophils # 8.9 K/mcL (1.6-8.9); Platelet Count 160 K/mcL (140-400); Red Blood Count 3.14 M/mcL (4.19-5.50); Red Cell Distribution Width 13.5 % (11.5-14.5); Segmented Neutrophils % 75.7 %; White Blood Count 11.8 K/mcL (4.3-11.1)
[2020-09-30] MEDS: amLODIPine 5 MG TABLET PO SCH (05:01)
[2020-09-30] MEDS: *HR* HYDROcodone/Acet 5/325 mg TABLET PO PRN ×2 (06:52→16:59)
[2020-09-30] MEDS: Albuterol 2.5 MG/3 ML NEBULIZER IH PRN (06:58)
[2020-09-30 07:02] LABS: Calcium 9.1 mg/dL (8.6-10.3); Potassium 5.3 mEq/L (3.5-5.1)
[2020-09-30] MEDS ORDERED: 0.9 % Sodium Chloride 1,000 ML IVC SCH ×3 (07:45→14:45)
[2020-09-30] MEDS: cefTRIAXone 1,000 MG in 0.9 % Sodium Chloride Mini Bag 100 ML IVPB SCH (07:53)
[2020-09-30] MEDS: Saline Nasal Spray 44 ML BOTTLE NS SCH ×3 (07:54→20:26)
[2020-09-30] MEDS: Azithromycin 500 MG in 0.9 % Sodium Chloride 250 ML IVPB SCH (07:54)
[2020-09-30] MEDS: Sennosides/Docusate Sodium TABLET PO SCH ×2 (07:55→20:21)
[2020-09-30] MEDS: Furosemide 20 MG TABLET PO SCH ×2 (07:55→20:21)
[2020-09-30] MEDS: Apixaban 5 MG TABLET PO SCH ×2 (07:55→20:22)
[2020-09-30] MEDS: carvediloL 25 MG TABLET PO SCH ×2 (07:55→16:59)
[2020-09-30] MEDS: Multivit/Ca/Min/Fe/FA 1 TAB TABLET PO SCH (07:55)
[2020-09-30] MEDS ORDERED: Azithromycin 500 MG in 0.9 % Sodium Chloride 250 ML IVPB SCH (09:00)
[2020-09-30] MEDS: Loratadine 10 MG TABLET PO SCH (09:15)
[2020-09-30] MEDS ORDERED: Furosemide 20 MG/2 ML VIAL IVP ONE (09:56)
[2020-09-30] MEDS: Mirtazapine 15 MG TABLET PO SCH (20:22)
[2020-09-30] MEDS: Gabapentin 100 MG CAPSULE PO SCH (20:22)
[2020-10-01] MEDS: amLODIPine 5 MG TABLET PO SCH (04:57)
[2020-10-01 05:12] LABS: Basophils % 0.2 %; Eosinophils # 0.1 K/mcL (0.0-0.6); Eosinophils % 0.8 %; Hematocrit 27.7 % (37.5-50.1); Hemoglobin 8.7 g/dL (12.9-16.9); Immature Granulocytes % 0.4 % (0-4); Lymphocytes # 1.2 K/mcL (0.6-4.6); Lymphocytes % 10.6 %; Mean Corpuscular HGB Conc 31.4 g/dL (31.6-35.5); Mean Corpuscular Hemoglobin 30.2 pg (28.0-33.3); Mean Corpuscular Volume 96.2 fL (83.0-100.0); Mean Platelet Volume 9.8 fL (9.4-12.4); Monocytes # 1.4 K/mcL (0.0-1.3); Monocytes % 12.6 %; Neutrophils # 8.4 K/mcL (1.6-8.9); Platelet Count 152 K/mcL (140-400); Red Blood Count 2.88 M/mcL (4.19-5.50); Red Cell Distribution Width 13.6 % (11.5-14.5); Segmented Neutrophils % 75.4 %; White Blood Count 11.2 K/mcL (4.3-11.1)
[2020-10-01 05:25] LABS: Calcium 9.1 mg/dL (8.6-10.3); Potassium 4.9 mEq/L (3.5-5.1)
[2020-10-01] MEDS: Insulin LISPRO 300 UNITS/3 ML VIAL SUBQ SCH ×4 (09:52→21:17)
[2020-10-01] MEDS: Apixaban 5 MG TABLET PO SCH ×2 (09:53→21:17)
[2020-10-01] MEDS: Loratadine 10 MG TABLET PO SCH (09:53)
[2020-10-01] MEDS: Furosemide 20 MG TABLET PO SCH (09:53)
[2020-10-01] MEDS: carvediloL 25 MG TABLET PO SCH ×2 (09:53→14:42)
[2020-10-01] MEDS: Sennosides/Docusate Sodium TABLET PO SCH ×2 (09:53→21:17)
[2020-10-01] MEDS: cefTRIAXone 1,000 MG in 0.9 % Sodium Chloride Mini Bag 100 ML IVPB SCH (09:53)
[2020-10-01] MEDS: Azithromycin 500 MG in 0.9 % Sodium Chloride 250 ML IVPB SCH (09:54)
[2020-10-01] MEDS ORDERED: Perflutren Lipid Microsphere 1.3 ML in 0.9 % Sodium Chloride 8.7 ML IVP PRN (11:50)
[2020-10-01] MEDS: Saline Nasal Spray 44 ML BOTTLE NS SCH ×2 (12:19→21:18)
[2020-10-01] MEDS: Multivit/Ca/Min/Fe/FA 1 TAB TABLET PO SCH (12:19)
[2020-10-01 13:52] LABS: Magnesium 1.9 mg/dL (1.6-2.6); Potassium 4.7 mEq/L (3.5-5.1)
[2020-10-01] MEDS: *HR* HYDROcodone/Acet 5/325 mg TABLET PO PRN (14:42)
[2020-10-01] MEDS ORDERED: 0.9 % Sodium Chloride 500 ML IVC ONE (17:00)
[2020-10-01] MEDS: 0.9 % Sodium Chloride 1,000 ML IVC SCH (17:55)
[2020-10-01 20:34] LABS: Albumin 2.9 g/dL (3.5-5.7); Albumin/Globulin Ratio 0.8 (1.1-2.2); Bilirubin,Direct 0.2 mg/dL (0.0-0.2); Bilirubin,Indirect 0.1 mg/dL (0.0-1.0); Bilirubin,Total 0.3 mg/dL (0.3-1.0); Globulin 3.6 g/dL (2.4-3.5); Total Protein 6.5 g/dL (6.4-8.9)
[2020-10-01] MEDS: Gabapentin 100 MG CAPSULE PO SCH (21:16)
[2020-10-01] MEDS: Mirtazapine 15 MG TABLET PO SCH (21:17)
[2020-10-02] MEDS: 0.9 % Sodium Chloride 1,000 ML IVC SCH (01:46)
[2020-10-02] MEDS: amLODIPine 5 MG TABLET PO SCH (04:32)
[2020-10-02] MEDS: Albuterol 2.5 MG/3 ML NEBULIZER IH PRN ×2 (04:35→22:33)
[2020-10-02] MEDS: *HR* HYDROcodone/Acet 5/325 mg TABLET PO PRN ×2 (04:50→14:11)
[2020-10-02 05:41] LABS: Hematocrit 25.9 % (37.5-50.1); Hemoglobin 8.2 g/dL (12.9-16.9); Mean Corpuscular HGB Conc 31.7 g/dL (31.6-35.5); Mean Corpuscular Hemoglobin 30.4 pg (28.0-33.3); Mean Corpuscular Volume 95.9 fL (83.0-100.0); Mean Platelet Volume 10.1 fL (9.4-12.4); Platelet Count 155 K/mcL (140-400); Red Cell Distribution Width 13.6 % (11.5-14.5)
[2020-10-02 05:57] LABS: Albumin 2.9 g/dL (3.5-5.7); Albumin/Globulin Ratio 0.9 (1.1-2.2); Bilirubin,Total 0.4 mg/dL (0.3-1.0); Calcium 8.8 mg/dL (8.6-10.3); Globulin 3.4 g/dL (2.4-3.5); Potassium 4.7 mEq/L (3.5-5.1); Total Protein 6.3 g/dL (6.4-8.9)
[2020-10-02] MEDS: Apixaban 5 MG TABLET PO SCH ×2 (09:26→21:59)
[2020-10-02] MEDS: Loratadine 10 MG TABLET PO SCH (09:26)
[2020-10-02] MEDS: Insulin LISPRO 300 UNITS/3 ML VIAL SUBQ SCH ×4 (09:26→21:59)
[2020-10-02] MEDS: Multivit/Ca/Min/Fe/FA 1 TAB TABLET PO SCH (09:26)
[2020-10-02] MEDS: carvediloL 25 MG TABLET PO SCH ×2 (09:26→18:16)
[2020-10-02] MEDS: Sennosides/Docusate Sodium TABLET PO SCH ×2 (09:26→22:00)
[2020-10-02] MEDS: cefTRIAXone 1,000 MG in 0.9 % Sodium Chloride Mini Bag 100 ML IVPB SCH (09:27)
[2020-10-02] MEDS: Azithromycin 500 MG in 0.9 % Sodium Chloride 250 ML IVPB SCH (09:27)
[2020-10-02] MEDS: Saline Nasal Spray 44 ML BOTTLE NS SCH ×2 (09:37→22:00)
[2020-10-02] MEDS ORDERED: 0.9 % Sodium Chloride 1,000 ML IVC SCH (12:30)
[2020-10-02] MEDS ORDERED: Albumin 25% 25gram/100mL 25 GM/100 ML IV.SOLN IVPB ONE (12:56)
[2020-10-02] MEDS ORDERED: Furosemide 40 MG/4 ML VIAL IVP SCH (14:00)
[2020-10-02 21:50] LABS: Adenovirus Not Detected (Not Detect); Bordetella Pertussis Not Detected (Not Detect); Chlamydophila pneumoniae Not Detected (Not Detect); Coronavirus 229E Not Detected (Not Detect); Coronavirus HKU1 Not Detected (Not Detect); Coronavirus NL63 Not Detected (Not Detect); Coronavirus OC43 Not Detected (Not Detect); Human Metapneumovirus Not Detected (Not Detect); Human Rhinovirus/Enterovirus Not Detected (Not Detect); Influenza A Subtype 2009 H1 Not Detected (Not Detect); Influenza B Not Detected (Not Detect); Mycoplasma pneumoniae Not Detected (Not Detect); Parainfluenza Virus 1 Not Detected (Not Detect); Parainfluenza Virus 2 Not Detected (Not Detect); Parainfluenza Virus 3 Not Detected (Not Detect); Parainfluenza Virus 4 Not Detected (Not Detect); Respiratory Syncytial Virus Not Detected (Not Detect); SARS-CoV-2 Not Detected (Not Detect)
[2020-10-02] MEDS: Acetaminophen 325 MG TABLET PO PRN (22:00)
[2020-10-02] MEDS: Mirtazapine 15 MG TABLET PO SCH (22:00)
[2020-10-02] MEDS: Gabapentin 100 MG CAPSULE PO SCH (22:00)
[2020-10-03] MEDS: amLODIPine 5 MG TABLET PO SCH (04:30)
[2020-10-03] MEDS: Albuterol 2.5 MG/3 ML NEBULIZER IH PRN ×4 (04:45→16:58)
[2020-10-03] MEDS ORDERED: Albumin 25% 25gram/100mL 25 GM/100 ML IV.SOLN IVPB STA (08:03)
[2020-10-03] MEDS: Sennosides/Docusate Sodium TABLET PO SCH ×2 (08:20→19:50)
[2020-10-03] MEDS: carvediloL 25 MG TABLET PO SCH ×2 (08:20→17:19)
[2020-10-03] MEDS: Multivit/Ca/Min/Fe/FA 1 TAB TABLET PO SCH (08:20)
[2020-10-03] MEDS: Loratadine 10 MG TABLET PO SCH (08:20)
[2020-10-03] MEDS: Apixaban 5 MG TABLET PO SCH ×2 (08:20→19:50)
[2020-10-03] MEDS: Azithromycin 500 MG in 0.9 % Sodium Chloride 250 ML IVPB SCH (08:21)
[2020-10-03] MEDS: cefTRIAXone 1,000 MG in 0.9 % Sodium Chloride Mini Bag 100 ML IVPB SCH (08:23)
[2020-10-03] MEDS: Insulin LISPRO 300 UNITS/3 ML VIAL SUBQ SCH ×3 (08:23→18:48)
[2020-10-03] MEDS: Saline Nasal Spray 44 ML BOTTLE NS SCH ×2 (08:23→19:50)
[2020-10-03] MEDS ORDERED: Furosemide 40 MG/4 ML VIAL ONE (09:12)
[2020-10-03] MEDS ORDERED: Furosemide 40 MG/4 ML VIAL IVP SCH (09:30)
[2020-10-03] MEDS: Acetylcysteine 10% 2 ML INHSOL IH SCH ×2 (13:30→14:58)
[2020-10-03 14:06] LABS: Hematocrit 26.6 % (37.5-50.1); Hemoglobin 8.6 g/dL (12.9-16.9); Mean Corpuscular HGB Conc 32.3 g/dL (31.6-35.5); Mean Corpuscular Hemoglobin 30.8 pg (28.0-33.3); Mean Corpuscular Volume 95.3 fL (83.0-100.0); Platelet Count 169 K/mcL (140-400); Red Blood Count 2.79 M/mcL (4.19-5.50); Red Cell Distribution Width 13.5 % (11.5-14.5); White Blood Count 7.1 K/mcL (4.3-11.1)
[2020-10-03 14:37] LABS: Calcium 9.5 mg/dL (8.6-10.3); Magnesium 2.2 mg/dL (1.6-2.6); Potassium 4.9 mEq/L (3.5-5.1)
[2020-10-03] MEDS: MethylPREDNISolone 40 MG/ML VIAL IVP SCH ×2 (15:25→17:20)
[2020-10-03] MEDS: *HR* HYDROcodone/Acet 5/325 mg TABLET PO PRN (17:19)
[2020-10-03] MEDS: Gabapentin 100 MG CAPSULE PO SCH (19:50)
[2020-10-03] MEDS: Mirtazapine 15 MG TABLET PO SCH (19:50)
[2020-10-03] MEDS: Furosemide 20 MG TABLET PO SCH (19:50)
[2020-10-03 20:53] VITALS: BP 123/66; PULSE 94; RESP 24; TEMP 98.9; O2SAT 97
== END 2020-10-03 20:00 | disposition short-term general hospital (02) | DRG 193 ==
LOC: EMEROOGRE 03:54 → INPGRE 08:20
PROVIDERS: ADMIT Family Medicine; ATTEND Family Medicine